=== PATIENT | female | born 1970 | race Caucasian/White ===

== ENCOUNTER 2019-06-09 11:14 | Day surgery (SDC) | payer BC ==
[2019-06-09] MEDS ORDERED: ALPRAZolam 0.5 MG TAB PO ONE (12:08)
[2019-06-09 12:11] VITALS: TEMP 98
--- NOTE | 2019-06-09 13:26 | US ---
ULTRASOUND GUIDED FNA THYROID BIOPSY: CLINICAL HISTORY: Right thyroid nodule FINDINGS: The procedure was explained to the patient. The risks, complications, benefits and alternatives were discussed and any questions were answered. Informed consent was obtained. Patient was placed supin e on the ultrasound table and prepped and draped in the usual sterile fashion. Utilizing a 25 gauge needle, five passes were made into the right thyroid nodule. Patient was stable throughout the procedure. Pathology is pending. All elements of maximal barrier technique were utilized. IMPRESSION: 1. Successful ultrasound guided FNA thyroid biopsy.
[2019-06-09 13:40] VITALS: BP 121/78; PULSE 76; RESP 14
== END 2019-06-09 13:35 | disposition home or self-care (01) ==
LOC: RADPROMAIN 11:14
PROVIDERS: ATTEND Internal Medicine Endocrinology, Diabetes & Metabolism
DX: E04.1 Nontoxic single thyroid nodule (principal); E89.0 Postprocedural hypothyroidism
CPT/HCPCS: 10005; 88173; 88305

== ENCOUNTER 2023-11-09 12:12 | Day surgery (SDC) | payer BC ==
[2023-11-09] MEDS: ALPRAZolam 0.5 MG TAB PO PRN (12:34)
[2023-11-09 12:59] VITALS: TEMP 98.1
[2023-11-09 14:03] VITALS: BP 120/78; PULSE 77; RESP 16
--- NOTE | 2023-11-09 16:48 | US ---
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 COMPARISON: 06/09/2019 ATTENDING: Dr. Arnel Nichols PROCEDURE: Informed consent was obtained. The risks and benefits of the procedure were discussed with the patien t. The site was marked. Timeout procedure was performed Ultrasound imaging of the thyroid demonstrates right thyroid nodule The patient was prepped, draped in the usual sterile fashion, and locally anesthetized with 1% lidoca ine. Five fine needle aspiration were then performed with a 25 gauge needle. Samples were sent to [facility] pathology department for further analysis. Patient tolerated the procedure without incident and wa s sent home in stable condition. IMPRESSION: Successful ultrasound guided fine needle aspiration.
== END 2023-11-09 13:55 | disposition home or self-care (01) ==
LOC: RADPROMAIN 12:12
PROVIDERS: ATTEND Internal Medicine Endocrinology, Diabetes & Metabolism
DX: E04.1 Nontoxic single thyroid nodule (principal)
CPT/HCPCS: 10005; 88173; 88305